=== PATIENT | female | born 1985 | race Caucasian/White ===

== ENCOUNTER 2020-05-16 13:27 | Day surgery (SDC) | payer BC, SELFPAY ==
[2020-05-16] VITALS (12 sets, daily range): BP systolic 107–120; BP diastolic 59–80; PULSE 87–103; RESP 16–20; TEMP 36.6–36.7; O2SAT 97–100; BMI 31.2
--- NOTE | 2020-05-16 14:17 | US_ITS ---
EXAMINATION: ULTRASOUND OBSTETRIC CLINICAL INFORMATION: Right lower quadrant pain. History of ectopic . COMPARISON: None TECHNIQUE: Transabdominal and transvaginal imaging of the pelvic viscera was performed utilizing grayscale and color Doppler technique FINDINGS: No intrauterine is identified. The endometrial canal is distended with heterogeneous cyst fluid/debris most compatible with blood clot. Left ovary not seen. Right ovary measures approximately 3.6 x 2.4 x 2.2 cm. There is a 3.5 x 2.8 x 2.6 cm ring-shaped structure inseparable from the right ovary concerning for an ectopic . There is a complicated fluid within the cul-de-sac, and right adnexa likely representing hemoperitoneum. Small fluid present within the Morison's pouch as well. US/US OB <= 14 weeks fetus IMPRESSION: No intrauterine is identified. Suspect right adnexal ectopic with hemoperitoneum. This critical result was discussed with Cristina Rodriguez M.D. at 4:10 PM on 05/16/2020 and it was ascertained that the content and urgency of the report was understood at the time of direct communication.
--- NOTE | 2020-05-16 14:17 | US_ITS ---
EXAMINATION: ULTRASOUND OBSTETRIC CLINICAL INFORMATION: Right lower quadrant pain. History of ectopic . COMPARISON: None TECHNIQUE: Transabdominal and transvaginal imaging of the pelvic viscera was performed utilizing grayscale and color Doppler technique FINDINGS: No intrauterine is identified. The endometrial canal is distended with heterogeneous cyst fluid/debris most compatible with blood clot. Left ovary not seen. Right ovary measures approximately 3.6 x 2.4 x 2.2 cm. There is a 3.5 x 2.8 x 2.6 cm ring-shaped structure inseparable from the right ovary concerning for an ectopic . There is a complicated fluid within the cul-de-sac, and right adnexa likely representing hemoperitoneum. Small fluid present within the Morison's pouch as well. US/US OB transvaginal IMPRESSION: No intrauterine is identified. Suspect right adnexal ectopic with hemoperitoneum. This critical result was discussed with Cristina Rodriguez M.D. at 4:10 PM on 05/16/2020 and it was ascertained that the content and urgency of the report was understood at the time of direct communication.
--- NOTE | 2020-05-16 14:29 | ED_ITS ---
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 She reports the pain is 10/10 when it occurs and doubles her over in pain. It started Sunday after she walked her dog, lasted a few hours and then went away. It recurred [place] the [place]. She started having minor spotting last night along with the pain. She states the bleeding is now resolved but the pain persists. No vaginal discharge. No N/V, No passing of clots or tissue. MD elicited complaint: abdominal pain Onset (ago): day(s) (3) Pain Consistency: intermittent Location: RLQ and pelvis Severity: severe Quality: cramping and sharp Radiation: back and other (right buttock) Exacerbating factors: movement Relieving factors: nothing Associated symptoms: denies other symptoms Related Data Patient : Yes Allergies Allergy/AdvReac Type Severity Reaction Status Date / Time Unable to Assess Allergy Verified 05/16/20 14:17 Review of Systems Review of Systems Constitutional: No Fever, No Chills ENT/Mouth: No sore throat, No Rhinorrhea, No Swallowing Difficulty Eyes: No Eye Pain, No Swelling, No Redness Cardiovascular: No Chest Pain, No SOB, No Orthopnea, No Edema Respiratory: No Cough, No Sputum, No Wheezing, No dyspnea Gastrointestinal: No Nausea, No Vomiting, No Diarrhea, No abdominal Pain, No Hematochezia, No Melena Genitourinary: No Dysuria, No Urinary Frequency, No Hematuria, + vaginal bleeding Musculoskeletal: No joint pain, No Myalgias Skin: No Skin Lesions, No rash Neuro: No Weakness, No Numbness, No Dizziness, No Headache Psych: No Anxiety/Panic, No Depression Heme/Lymph: No Bruising, No Lymphadenopathy Endocrine: No Polyuria, No Polydipsia Physical Exam Vital Signs: Vital Signs: Last Vital Signs Temp 98.0 F 05/16/20 16:03 Pulse 96 05/16/20 16:03 Resp 18 05/16/20 16:03 BP 118/65 05/16/20 16:03 Pulse Ox 100 05/16/20 16:03 Body Mass Index 31.2 Appearance: Alert. Oriented X3. No acute distress. Eyes: Pupils equal, round and reactive to light. ENT: Pharynx normal. Neck: Normal inspection. Neck supple. CVS: Normal heart rate and rhythm. Pulses normal. Respiratory: No respiratory distress. Breath sounds normal. Abdomen: Soft and nontender. +BS x4 Skin: Skin warm and dry. Normal skin color. Normal skin turgor. No rashes. Extremities: No lower extremity edema. Neuro: Oriented X 3. No motor deficit. No sensory deficit. Course Course Course Narrative: 35 y/o who is 6w6d presenting with intermittent severe right lower pelvic pain for the last 3 days. Hx ectopic and multiple miscarriages in the past. Pain is mild now and abd exam with mild diffuse lower tenderness. Need to r/o ectopic with STAT U/S. Type and screen and HCT quant ordered. Reevaluation(s) Reevaluation #1: Pelvic U/S showed: No intrauterine is identified.Suspect right adnexal ectopic with hemoperitoneum. 2nd IV line placed and Dr. Nolan contacted immediately. Planning for emergent OR -patient is hemodynamically stable, rapid COVID sent. H/H 03/27. Nursing bakery supervisor contacted to inform OR team of emergent case. Results were discussed with the patient and her at the bedside. All questions were answered. MDM - Abdominal Pain Lab Data Result diagrams: 05/16/20 14:42 05/16/20 14:42 Labs: Lab Results 05/16/20 05/16/20 05/16/20 Range/Units 14:42 14:42 14:42 WBC 10.3 (4.8-10.8) X10*3/uL RBC 3.48 L (4.20-5.50) X10*6/uL Hgb 10.5 L (12.0-16.0) g/dl Hct 31.6 L (37-47) % MCV 90.8 (80-98) fL MCH 30.2 (27.0-33.0) pg MCHC 33.2 (31.0-35.0) g/dl RDW 12.8 (11.0-16.0) % Plt Count 231 (160-400) X10*3/uL MPV 11.2 (9.4-12.3) fL Immature Gran % (Auto) 0.5 H (0.0-0.4) % Neut % (Auto) 85.2 H (45-73) % Lymph % (Auto) 9.3 L (20-40) % [place] % (Auto) 4.3 (2-11) % Eos % (Auto) 0.3 (0-4) % Baso % (Auto) 0.4 (0-2) % Lymph # (Auto) 1.0 L (1.2-4.9) X10*3/uL [place] # (Auto) 0.4 (0.1-1.2) X10*3/uL Eos # (Auto) 0.0 (0.0-0.4) X10*3/uL Baso # (Auto) 0.0 (0.0-0.2) X10*3/uL Abs Immat Gran (auto) 0.05 H (0.00-0.03) X10*3/uL Absolute Neuts (auto) 8.8 H (2.0-8.3) X10*3/uL Absolute Nucleated RBC 0.000 (0.0-0.012) X10*3/uL Nucleated RBC % (auto) 0.0 (0.0-0.2) /100WBC Sodium 139 (135-145) mmol/L Potassium 3.8 (3.3-5.1) mmol/l Chloride 103 (96-108) mmol/L Carbon Dioxide 26 (22-29) mmol/L Anion Gap 14 (12-20) BUN 10 (9-16) mg/dL Creatinine 0.71 (0.5-1.4) mg/dL Estim Creat Clear Calc 96.4 Estimated GFR > 60 Random Glucose 97 (60-115) mg/dL Calcium 9.1 (8.4-10.2) mg/dL Magnesium 2.1 (1.6-2.6) mg/dL Total Bilirubin 0.4 (0.0-1.0) mg/dL Direct Bilirubin 0.2 (0.0-0.5) mg/dL AST 17 (5-31) U/L ALT 22 (0-31) U/L Alkaline Phosphatase 60 (39-117) U/L Total Protein 7.3 (6.5-8.0) g/dL Albumin 4.5 (3.5-5.0) g/dL Beta HCG, Quant 7463 mIU/mL Urine Color Urine Appearance Urine pH (5.0-8.0) Ur Specific [place] (1.005-1.025) Urine Protein (NEG-TRACE) MG/DL Urine Glucose (UA) (NEG) MG/DL Urine Ketones (NEG) MG/DL Urine Blood (NEG) Urine Nitrite (NEG) Ur Leukocyte Esterase (NEG) Urine RBC (0) /HPF Urine WBC (0-4) /HPF Ur Squamous Epith Cells /LPF Urine Bacteria /LPF Urine Mucus /LPF Blood Type Antibody Screen 05/16/20 05/16/20 Range/Units 14:42 14:45 WBC (4.8-10.8) X10*3/uL RBC (4.20-5.50) X10*6/uL Hgb (12.0-16.0) g/dl Hct (37-47) % MCV (80-98) fL MCH (27.0-33.0) pg MCHC (31.0-35.0) g/dl RDW (11.0-16.0) % Plt Count (160-400) X10*3/uL MPV (9.4-12.3) fL Immature Gran % (Auto) (0.0-0.4) % Neut % (Auto) (45-73) % Lymph % (Auto) (20-40) % [place] % (Auto) (2-11) % Eos % (Auto) (0-4) % Baso % (Auto) (0-2) % Lymph # (Auto) (1.2-4.9) X10*3/uL [place] # (Auto) (0.1-1.2) X10*3/uL Eos # (Auto) (0.0-0.4) X10*3/uL Baso # (Auto) (0.0-0.2) X10*3/uL Abs Immat Gran (auto) (0.00-0.03) X10*3/uL Absolute Neuts (auto) (2.0-8.3) X10*3/uL Absolute Nucleated RBC (0.0-0.012) X10*3/uL Nucleated RBC % (auto) (0.0-0.2) /100WBC Sodium (135-145) mmol/L Potassium (3.3-5.1) mmol/l Chloride (96-108) mmol/L Carbon Dioxide (22-29) mmol/L Anion Gap (12-20) BUN (9-16) mg/dL Creatinine (0.5-1.4) mg/dL Estim Creat Clear Calc Estimated GFR Random Glucose (60-115) mg/dL Calcium (8.4-10.2) mg/dL Magnesium (1.6-2.6) mg/dL Total Bilirubin (0.0-1.0) mg/dL Direct Bilirubin (0.0-0.5) mg/dL AST (5-31) U/L ALT (0-31) U/L Alkaline Phosphatase (39-117) U/L Total Protein (6.5-8.0) g/dL Albumin (3.5-5.0) g/dL Beta HCG, Quant mIU/mL Urine Color YELLOW Urine Appearance HAZY Urine pH 7.5 (5.0-8.0) Ur Specific [place] 1.020 (1.005-1.025) Urine Protein TRACE (NEG-TRACE) MG/DL Urine Glucose (UA) NEG (NEG) MG/DL Urine Ketones 5 (NEG) MG/DL Urine Blood 2+ H (NEG) Urine Nitrite NEG (NEG) Ur Leukocyte Esterase NEG (NEG) Urine RBC 1-4 (0) /HPF Urine WBC 0 (0-4) /HPF Ur Squamous Epith Cells 2+ /LPF Urine Bacteria 1+ /LPF Urine Mucus 1+ /LPF Blood Type O Positive Antibody Screen NEGATIVE Discharge Plan Discharge Clinical Impression: Ectopic Qualifiers: Location of ectopic : tubal Intrauterine status: without intrauterine Laterality: right Qualified Code(s): O00.101 - Right tubal without intrauterine Patient Disposition: Admitted As Inpatient [facility] Past Medical History Attestation statement: The following information was validated with the patient. Medical History Ectopic Miscarriage Social History Social History Alcohol intake: never Smoking Status: Never smoker Use of substances other than those prescribed or required for medical reasons: No Advance Directives: No Advance Directives Information Provided: Yes
[2020-05-16] MEDS: 0.9 % Sodium Chloride 1,000 ML 999 ML IVCONT (14:44)
[2020-05-16 15:01] LABS: Basophils Percent Auto 0.4 % (0-2); Eosinophils Percent Auto 0.3 % (0-4); Hematocrit 31.6 % (37-47); Hemoglobin 10.5 g/dl (12.0-16.0); Imm Gran Abs Auto 0.05 X10*3/uL (0.00-0.03); Imm Gran Pct Auto 0.5 % (0.0-0.4); Lymphocytes Percent Auto 9.3 % (20-40); Mean Corpuscular HGB Conc 33.2 g/dl (31.0-35.0); Mean Corpuscular Hemoglobin 30.2 pg (27.0-33.0); Mean Corpuscular Volume 90.8 fL (80-98); Mean Platelet Volume 11.2 fL (9.4-12.3); Monocytes Absolute Auto 0.4 X10*3/uL (0.1-1.2); Monocytes Percent Auto 4.3 % (2-11); Neutrophils Absolute Auto 8.8 X10*3/uL (2.0-8.3); Neutrophils Percent Auto 85.2 % (45-73); Platelet Count 231 X10*3/uL (160-400); Red Blood Count 3.48 X10*6/uL (4.20-5.50); Red Cell Distribution Width 12.8 % (11.0-16.0); White Blood Count 10.3 X10*3/uL (4.8-10.8)
[2020-05-16 15:02] LABS: Glucose Urine UA NEG (NEG); Leukocyte Esterase Urine NEG (NEG); MANUAL DIFF FLAG NO; Nitrite Urine NEG (NEG); PH 7.5 (5.0-8.0); Urine Blood 2+ (NEG); Urine Ketones 5 MG/DL (NEG); Urine Protein TRACE MG/DL (NEG-TRACE)
[2020-05-16 15:10] LABS: Appearance Urine HAZY; Color Urine YELLOW
[2020-05-16 15:16] LABS: Bacteria Urine 1+ /LPF; Mucus Urine 1+ /LPF; Squamous Epithelial Cell Urine 2+ /LPF; WBC Urine 0 /HPF (0-4)
[2020-05-16 15:24] LABS: Alanine Aminotransferase 22 U/L (0-31); Albumin Level 4.5 g/dL (3.5-5.0); Alkaline Phosphatase 60 U/L (39-117); Anion Gap 14 (12-20); Aspartate Amino Transferase 17 U/L (5-31); Bilirubin Direct 0.2 mg/dL (0.0-0.5); Bilirubin Total 0.4 mg/dL (0.0-1.0); Blood Urea Nitrogen 10 mg/dL (9-16); Calcium 9.1 mg/dL (8.4-10.2); Carbon Dioxide 26 mmol/L (22-29); Chloride 103 mmol/L (96-108); Creatinine Clr Calc Pharmacy 96.4; Estimated Glomerular Filt Rate > 60; Glucose Random 97 mg/dL (60-115); Magnesium 2.1 mg/dL (1.6-2.6); Potassium 3.8 mmol/l (3.3-5.1); Sodium 139 mmol/L (135-145); Total Protein 7.3 g/dL (6.5-8.0)
[2020-05-16 15:31] LABS: HCG Quantitative 7463 mIU/mL
--- NOTE | 2020-05-16 16:34 | PC.NURSE ---
PA at bedside to explain US results. Second IV placed. allowed to come back to see her. OB on his way to see patient and bring her to OR. Pt aware of the plan. VSS at this time.
[2020-05-16 16:56] LABS: COVID-19 Test Negative (Negative); IDNOW Serial# 9DD0AD1C
--- NOTE | 2020-05-16 17:20 | P.HPOB_ITS ---
ACCOUNT MANAGER SALES REPRESENTATIVE - H&P: HPI History of Present Illness Narrative: Leigh Ann Millan is a 35 year old female presented emergency room 6 and half weeks complaining of worsening pelvic pain. The patient's LMP was 6 and half weeks ago started having pelvic pain more on the right a week ago which got worse every day till today when it became not tolerated so the patient came into the emergency room . No other associated symptoms, the patient has history of ectopic status post left salpingectomy accordin g to the patient 10 years ago followed by a miscarriage and 2 vaginal deliveries normal gestations with no complications followed by for SABs [facility] - Review of Systems Review of Systems ROS Unobtainable: All systems reviewed & are unremarkable except as noted in HPI and below OB PMFSH Past Medical History Medical History (Updated 05/16/20 @ 17:31 by Jarad Nolan MD) Miscarriage Date of last menstrual period: 03/25/20 Patient : No Surgical History Surgical History (Updated 05/16/20 @ 17:31 by Jarad Nolan MD) S/P laparoscopic procedure Social History Social History Alcohol intake: never Smoking Status: Never smoker Use of substances other than those prescribed or required for medical reasons: No Advance Directives: No Advance Directives Information Provided: Yes Meds Allergies Allergy/AdvReac Type Severity Reaction Status Date / Time No Known Allergies Allergy Verified 05/16/20 17:22 ACCOUNT MANAGER SALES REPRESENTATIVE Physical Exam Vitals Vital signs: Temp Pulse Resp BP Pulse Ox 98.0 F 98 20 115/74 100 05/16/20 16:03 05/16/20 16:40 05/16/20 16:40 05/16/20 16:40 05/16/20 16:40 Body Mass Index 31.2 Lungs Auscultation: Clear to auscultation Cardiovascular Auscultation: RRR Abdomen Auscultation/Inspection/Palpation: Distended, Tenderness and Guarding Female Genitalia (Pelvic) Exam: Deferred ACCOUNT MANAGER SALES REPRESENTATIVE - Results Labs CBC & Chem 7: 05/16/20 14:42 05/16/20 14:42 Labs: Short CBC 05/16/20 Range/Units 14:42 WBC 10.3 (4.8-10.8) X10*3/uL Hgb 10.5 L (12.0-16.0) g/dl Hct 31.6 L (37-47) % Plt Count 231 (160-400) X10*3/uL BMP 05/16/20 14:42 Sodium 139 Potassium 3.8 Chloride 103 Carbon Dioxide 26 BUN 10 Creatinine 0.71 Calcium 9.1 Liver Function 05/16/20 Range/Units 14:42 Total Bilirubin 0.4 (0.0-1.0) mg/dL Direct Bilirubin 0.2 (0.0-0.5) mg/dL AST 17 (5-31) U/L ALT 22 (0-31) U/L Alkaline Phosphatase 60 (39-117) U/L Albumin 4.5 (3.5-5.0) g/dL Urine 05/16/20 Range/Units 14:42 Urine Color YELLOW Urine Appearance HAZY Urine pH 7.5 (5.0-8.0) Ur Specific [place] 1.020 (1.005-1.025) Urine Protein TRACE (NEG-TRACE) MG/DL Urine Glucose (UA) NEG (NEG) MG/DL Antibody Screen Antibody Screen NEGATIVE 05/16/20 14:45 Assessment and Plan (1) Ectopic : Qualifiers: Intrauterine status: without intrauterine Laterality: right Location of ectopic : tubal Qualified Code(s): O00.101 - Right tubal without intrauterine Status: Acute Discussed with the patient the finding on her workup including the following an HCG 7400, ultrasound showing no intrauterine and a right complex mass in showed in the pelvis consistent with ruptured ectopic and hemoperitoneum. Recommended laparoscopic right salpingostomy possible right salpingectomy and evacuation of hemoperitoneum possible laparotomy discussed with the patient the procedure possible risks including but not limited to bleeding, infection, possible injury to bladder, blood bowel, ureter, blood vessels, possible need for blood transfusion was all its risks, possible laparotomy, possible hysterectomy. Also discussed the patient if the right tube looked ruptured or damaged and the tube looks like cannot be salvaged will proceed with right salpingectomy, discussed the patient the implication of a right salpingectomy given her history of left salpingectomy, specifically inability to conceive spontaneously in the future and the need for in vitro fertilization. The patient verbalized understanding and agreed with the plan and expressed interest in right salpingectomy and is not interested in future fe rtility and does not want increase the risk for future recurrent ectopic per patient. All questions answered patient verbalized understanding and signed the consent.
--- NOTE | 2020-05-16 17:27 | P.CONAN_ITS ---
[facility] Past Medical History Medical History Ectopic Miscarriage Surgical History Surgical History (Updated 05/16/20 @ 17:31 by Jarad Nolan MD) S/P laparoscopic procedure Social History Social History Alcohol intake: never Smoking Status: Never smoker Use of substances other than those prescribed or required for medical reasons: No Advance Directives: No Advance Directives Information Provided: Yes Meds Allergies Allergy/AdvReac Type Severity Reaction Status Date / Time No Known Allergies Allergy Verified 05/16/20 17:22 Exam Exam Date and Time: May 16, 2020 1727 Height,Weight and Vital Signs: Height 5 ft Weight 72.575 kg Last Vital Signs Temp 98.0 F 05/16/20 16:03 Pulse 98 05/16/20 16:40 Resp 20 05/16/20 16:40 BP 115/74 05/16/20 16:40 Pulse Ox 100 05/16/20 16:40 Pertinent Lab Results Pertinent Lab Results: Laboratory Tests 05/16/20 05/16/20 05/16/20 14:42 14:42 14:42 WBC 10.3 RBC 3.48 L Hgb 10.5 L Hct 31.6 L MCV 90.8 MCH 30.2 MCHC 33.2 RDW 12.8 Plt Count 231 MPV 11.2 Immature Gran % (Auto) 0.5 H Neut % (Auto) 85.2 H Lymph % (Auto) 9.3 L [place] % (Auto) 4.3 Eos % (Auto) 0.3 Baso % (Auto) 0.4 Lymph # (Auto) 1.0 L [place] # (Auto) 0.4 Eos # (Auto) 0.0 Baso # (Auto) 0.0 Abs Immat Gran (auto) 0.05 H Absolute Neuts (auto) 8.8 H Absolute Nucleated RBC 0.000 Nucleated RBC % (auto) 0.0 Sodium 139 Potassium 3.8 Chloride 103 Carbon Dioxide 26 Anion Gap 14 BUN 10 Creatinine 0.71 Estim Creat Clear Calc 96.4 Estimated GFR > 60 Random Glucose 97 Calcium 9.1 Magnesium 2.1 Total Bilirubin 0.4 Direct Bilirubin 0.2 AST 17 ALT 22 Alkaline Phosphatase 60 Total Protein 7.3 Albumin 4.5 Beta HCG, Quant 7463 Urine Color Urine Appearance Urine pH Ur Specific [place] Urine Protein Urine Glucose (UA) Urine Ketones Urine Blood Urine Nitrite Ur Leukocyte Esterase Urine RBC Urine WBC Ur Squamous Epith Cells Urine Bacteria Urine Mucus COVID-19 (TONY) COVID-19 Clin Com Blood Type Antibody Screen 05/16/20 05/16/20 05/16/20 14:42 14:45 16:12 WBC RBC Hgb Hct MCV MCH MCHC RDW Plt Count MPV Immature Gran % (Auto) Neut % (Auto) Lymph % (Auto) [place] % (Auto) Eos % (Auto) Baso % (Auto) Lymph # (Auto) [place] # (Auto) Eos # (Auto) Baso # (Auto) Abs Immat Gran (auto) Absolute Neuts (auto) Absolute Nucleated RBC Nucleated RBC % (auto) Sodium Potassium Chloride Carbon Dioxide Anion Gap BUN Creatinine Estim Creat Clear Calc Estimated GFR Random Glucose Calcium Magnesium Total Bilirubin Direct Bilirubin AST ALT Alkaline Phosphatase Total Protein Albumin Beta HCG, Quant Urine Color YELLOW Urine Appearance HAZY Urine pH 7.5 Ur Specific [place] 1.020 Urine Protein TRACE Urine Glucose (UA) NEG Urine Ketones 5 Urine Blood 2+ H Urine Nitrite NEG Ur Leukocyte Esterase NEG Urine RBC 1-4 Urine WBC 0 Ur Squamous Epith Cells 2+ Urine Bacteria 1+ Urine Mucus 1+ COVID-19 (TONY) Negative COVID-19 Clin Com See Note Blood Type O Positive Antibody Screen NEGATIVE Assessment and Plan Assessment Anesthesia Assessment: Anesthesia Plan Discussed Final Anesthetic Review NPO: Yes ASA Class: I Final Preanesthetic Review: No Changes in Pt Med Stat, Meds/Allgs Chart Reviewed, Consent Obtained/Reviewed and Anes Risks/Benef Reviewed Patient Risk: Intermediate Procedure Risk: Low Anesthetic Plan Anesthetic Plan: GA Disposition: Standard PACU
--- NOTE | 2020-05-16 17:42 | P.CONAN_ITS ---
[facility] Past Medical History Medical History (Updated 05/16/20 @ 17:31 by Jarad Nolan MD) Miscarriage Surgical History Surgical History (Updated 05/16/20 @ 17:31 by Jarad Nolan MD) S/P laparoscopic procedure Social History Social History Alcohol intake: never Smoking Status: Never smoker Use of substances other than those prescribed or required for medical reasons: No Advance Directives: No Advance Directives Information Provided: Yes Meds Allergies Allergy/AdvReac Type Severity Reaction Status Date / Time No Known Allergies Allergy Verified 05/16/20 17:22 Exam Exam Date and Time: May 16, 2020 174 Height,Weight and Vital Signs: Height 5 ft Weight 72.575 kg Last Vital Signs Temp 98.0 F 05/16/20 16:03 Pulse 98 05/16/20 16:40 Resp 20 05/16/20 16:40 BP 115/74 05/16/20 16:40 Pulse Ox 100 05/16/20 16:40 Pertinent Lab Results Pertinent Lab Results: Laboratory Tests 05/16/20 05/16/20 05/16/20 14:42 14:42 14:42 WBC 10.3 RBC 3.48 L Hgb 10.5 L Hct 31.6 L MCV 90.8 MCH 30.2 MCHC 33.2 RDW 12.8 Plt Count 231 MPV 11.2 Immature Gran % (Auto) 0.5 H Neut % (Auto) 85.2 H Lymph % (Auto) 9.3 L [place] % (Auto) 4.3 Eos % (Auto) 0.3 Baso % (Auto) 0.4 Lymph # (Auto) 1.0 L [place] # (Auto) 0.4 Eos # (Auto) 0.0 Baso # (Auto) 0.0 Abs Immat Gran (auto) 0.05 H Absolute Neuts (auto) 8.8 H Absolute Nucleated RBC 0.000 Nucleated RBC % (auto) 0.0 Sodium 139 Potassium 3.8 Chloride 103 Carbon Dioxide 26 Anion Gap 14 BUN 10 Creatinine 0.71 Estim Creat Clear Calc 96.4 Estimated GFR > 60 Random Glucose 97 Calcium 9.1 Magnesium 2.1 Total Bilirubin 0.4 Direct Bilirubin 0.2 AST 17 ALT 22 Alkaline Phosphatase 60 Total Protein 7.3 Albumin 4.5 Beta HCG, Quant 7463 Urine Color Urine Appearance Urine pH Ur Specific [place] Urine Protein Urine Glucose (UA) Urine Ketones Urine Blood Urine Nitrite Ur Leukocyte Esterase Urine RBC Urine WBC Ur Squamous Epith Cells Urine Bacteria Urine Mucus COVID-19 (TONY) COVID-19 Clin Com Blood Type Antibody Screen 05/16/20 05/16/20 05/16/20 14:42 14:45 16:12 WBC RBC Hgb Hct MCV MCH MCHC RDW Plt Count MPV Immature Gran % (Auto) Neut % (Auto) Lymph % (Auto) [place] % (Auto) Eos % (Auto) Baso % (Auto) Lymph # (Auto) [place] # (Auto) Eos # (Auto) Baso # (Auto) Abs Immat Gran (auto) Absolute Neuts (auto) Absolute Nucleated RBC Nucleated RBC % (auto) Sodium Potassium Chloride Carbon Dioxide Anion Gap BUN Creatinine Estim Creat Clear Calc Estimated GFR Random Glucose Calcium Magnesium Total Bilirubin Direct Bilirubin AST ALT Alkaline Phosphatase Total Protein Albumin Beta HCG, Quant Urine Color YELLOW Urine Appearance HAZY Urine pH 7.5 Ur Specific [place] 1.020 Urine Protein TRACE Urine Glucose (UA) NEG Urine Ketones 5 Urine Blood 2+ H Urine Nitrite NEG Ur Leukocyte Esterase NEG Urine RBC 1-4 Urine WBC 0 Ur Squamous Epith Cells 2+ Urine Bacteria 1+ Urine Mucus 1+ COVID-19 (TONY) Negative COVID-19 Clin Com See Note Blood Type O Positive Antibody Screen NEGATIVE Airway Mallampati Class: I TM Dist: >3cm Neck ROM: Full Heart: RRR Lungs: CTA
--- NOTE | 2020-05-16 17:47 | MHC.SHP ---
Pre-Procedural Eval Section A The patient is an INPATIENT: No Changes since office visit: No Cold of Flu in the past 2 weeks, No New Medical Problems, No Changes in Medication and No Patient answered all questions The History & Physical has been completed within 30 days and I have reviewed it.: Yes Section B Chief Complaint: abd pain Allergies: Allergies Allergy/AdvReac Type Severity Reaction Status Date / Time No Known Allergies Allergy Verified 05/16/20 17:22 Plan Diagnosis/Plan: Unchanged I have reviewed the history and physical and performed a pertinent physical examination on my patient. No changes have occurred unless specified.
--- NOTE | 2020-05-16 19:32 | W.PM.OPN ---
Operative Note Operative Note Date of Service: 05/16/20 Narrative: PREOPERATIVE DIAGNOSIS:?R tubal ectopic POSTOPERATIVE DIAGNOSIS:?3-4 cm right ecotpic filling up most of the tubal length with bluish discoloration, 50 cc of hemoperitoneum Procedure: Right partial salpingectomy QBL: Minimal Anesthesia: GETA SURGEON:? Jarad Nolan MD?? Case Management Specialist:None Complications: None Pathology: Right partial Fallopian tubes? DESCRIPTION OF PROCEDURE:?The patient was taken to the OR where general anesthesia was easily obtained. The patient was then prepped and draped in a sterile fashion and placed in dorsal lithotomy position. A speculum was introduced into the patient?s vagina for cervical visualization. a was introduced into the patient?s cervix. The single tooth tenaculum was then removed and hemostasis was assured?using pressure. a Cole catheter?was inserted and clear urine started draining. Gloves were changed to clean ones. Attention was then drawn to the abdomen where a 10 mm longitudinal incision was done intra umbilical and carried down all the way to the fascia, which was tented?up using 2 Rasheeda clamps and was nicked in the midline and then extended on both end of the incision?, them using 2 pick?ups the peritoneum?was entered with Metzenbaum scissors and under direct visualization, a 10 mm Fernandes trocar was introduced into the patient?s abdomen. Once intraperitoneal placement was confirmed with direct visualization, pneumoperitoneum was started & was easily obtained.Then, two fingerbreadths above the pubic symphysis and towards the?right lower quadrant, under direct visualization, a 5 mm trocar was then introduced into the patient?s abdomen. and a 3rd 10 mm trochar on the left?lower quadrant was placed?in a similar manner. The patient was placed in Trendelenburg position, Inspection revealed right tubal filling up most of the right tube was bluish discoloration and 50 cc of hemoperitoneum, normal bilateral ovaries. Attention was then drawn to the Right fallopian tube. Since most of the right tube was filled up with the ectopic with bluish discoloration decision was made to proceed with partial salpingectomy instead of salpingostomy The IP ligament was identified and fallopian tube was then grasped by the fimbria and incised from the mesosalpinx using ligasure device, using cautery for hemostasis and cutting afterwards a bite at a time all the way to the area medial to the edge of the ectopic of the right fallopian tube. Good hemostasis was noted from the right fallopian tube sites and the operative site. Specimen were then removed from the patient?s abdomen using endoloop from the 10 mm trocar through the umbilicus. Copious irrigation was done. Once good hemostasis was noted from the patient?s abdomen, pneumoperitoneum was deflated and all trocars were removed. Infraumbilical fascia was closed with 0 Vicryl and interrupted suture. The skin was closed with 4-0 Vicryl. The Right and left?lower quadrant ports were closed with 0 Vicryl. Bupivicaine 0.25 10 cc were injected subcuticularly in the 3 incisions. Then speculum was put back in the vagina inspection revealed?hemostasis at the site of the tenaculum, the?sponge stick was removed?from the patient's vagina and Cole was draining clear urine was taken out too. Sponge, lap and needle counts were correct x2. The patient was taken to the recovery room in stable condition.
--- NOTE | 2020-05-16 19:34 | PM.OP ---
Brief Operative Note Date of Service: 05/16/20 Pre-op diagnosis: R tubal prgnancy with hemoperitoneum Post-op diagnosis: other (R tubal filling up 3-4 cm of the fallopian tube, with bluish discoloration, 50 cc of hemoperitoneum) Procedure: Laparoscopic Right partial salpingectomy Surgeon: Jarad Nolan MD Anesthesia: GETA Estimated blood loss (mL): 0 Pathology: other (Right & left fallopian tubes) Condition: stable Disposition: PACU
[2020-05-16] MEDS: oxyCODONE HCl Immed Release 5 MG TABLET PO (20:04)
[2020-05-16] MEDS: Acetaminophen 325 MG TABLET 650 MG PO (20:04)
[2020-05-16] MEDS: fentaNYL citrate/PF 100 MCG/2 ML VIAL 25 MCG IVPUSH ×2 (20:07→20:14)
--- NOTE | 2020-05-17 09:41 | HO.POSTANES ---
Post Anesthesia Evaluation Post Anesthesia Evaluation Vital Signs: VSS Anesthesia: General Endotracheal-GETA Mental Status: Awake Pain Control: Satisfactory Nausea/Vomiting: None Hydration: Adequate Anesthesia-Related Issues: No Anes. Related Issues
== END 2020-05-16 21:05 | disposition home or self-care (01) ==
LOC: HO.ED 16:27 → HO.SSS 17:47
PROVIDERS: Physician Assistant; Emergency Provider Emergency Medicine; Visit Provider Obstetrics & Gynecology
PROC: 10T24ZZ Resection of Products of Conception, Ectopic, Percutaneous Endoscopic Approach (ICD-10-PCS; CPT 59150; principal; 2020-05-16 17:09)
DX: O00.101 Right tubal pregnancy without intrauterine pregnancy (principal); O26.891 Other specified pregnancy related conditions, first trimester; O09.11 Supervision of pregnancy with history of ectopic pregnancy, first trimester; Z3A.14 14 weeks gestation of pregnancy
CPT/HCPCS: 58661; 36415; 76801; 76817; 80048; 80076; 81001; 81003; 83735; 84702; 85025; 86850; 86900; 86901; 87635; 88305; 96361; 96374; 99285; J0330; J1100; J1885; J2250; J3010

== ENCOUNTER 2020-05-19 14:23 | Outpatient (REF) | payer BC, SELFPAY ==
[2020-05-19 15:51] LABS: HCG Quantitative 969 mIU/mL
== END 2020-05-19 14:24 | disposition home or self-care (01) ==
LOC: HO.LAB 14:23
PROVIDERS: Visit Provider Obstetrics & Gynecology
DX: O00.101 Right tubal pregnancy without intrauterine pregnancy (principal)
CPT/HCPCS: 84702

== ENCOUNTER 2020-06-03 10:49 | Outpatient (REF) | payer BC, SELFPAY ==
[2020-06-03 13:37] LABS: HCG Quantitative 10 mIU/mL
== END 2020-06-03 10:50 | disposition home or self-care (01) ==
LOC: HO.LAB 10:49
PROVIDERS: Visit Provider Obstetrics & Gynecology
DX: O00.101 Right tubal pregnancy without intrauterine pregnancy (principal); O26.899 Other specified pregnancy related conditions, unspecified trimester; R31.0 Gross hematuria
CPT/HCPCS: 36415; 81002; 84702; 87086

== ENCOUNTER 2020-06-17 14:06 | Outpatient (REF) | payer BC, SELFPAY | END 2020-06-17 14:07 | disposition home or self-care (01) | LOC: HO.LAB 14:06 | PROVIDERS: Visit Provider Obstetrics & Gynecology | DX: O00.90 Unspecified ectopic pregnancy without intrauterine pregnancy (principal); O08.89 Other complications following an ectopic and molar pregnancy; R31.29 Other microscopic hematuria | CPT/HCPCS: 81003; 87086 ==

== ENCOUNTER 2020-07-02 08:08 | Outpatient (REF) | payer BC, SELFPAY ==
[2020-07-02 09:05] LABS: HCG Quantitative < 2 mIU/mL
== END 2020-07-02 08:09 | disposition home or self-care (01) ==
LOC: HO.LAB 08:08
PROVIDERS: Visit Provider Obstetrics & Gynecology
DX: O00.101 Right tubal pregnancy without intrauterine pregnancy (principal); O09.529 Supervision of elderly multigravida, unspecified trimester; O26.899 Other specified pregnancy related conditions, unspecified trimester; R31.29 Other microscopic hematuria
CPT/HCPCS: 36415; 84702

== ENCOUNTER 2020-07-05 08:30 | Outpatient (REF) | payer BC, SELFPAY ==
--- NOTE | ~2020-07-05 | CT_ITS ---
EXAMINATION: CT ABDOMEN AND PELVIS WITHOUT AND WITH CONTRAST CLINICAL INFORMATION: Microscopic hematuria. COMPARISON: None TECHNIQUE: Multidetector volumetric imaging was performed of the abdomen and pelvis before and after the IV administration of 85 mL of Omnipaque 350 intravenous contrast. Sagittal and coronal reformatted images were obtained on the technologist's workstation. This CT examination was performed using dose optimization techniques as appropriate, variously including the following: *Automated exposure control *Adjustment of mA and/or kV according to patient size (this includes techniques or standardized protocols for targeted exams where dose is matched to indication/reason for exam; i.e. extremities or head) *Use of iterative reconstruction technique DLP: 977 mGy-cm FINDINGS: LUNG BASES: The visualized lung bases are unremarkable. LIVER, GALLBLADDER, AND BILIARY TREE: The liver is normal in size, shape, and attenuation. No focal hepatic lesion or biliary ductal dilatation is present. The gallbladder is unremarkable with no evidence of radiopaque gallstones, gallbladder wall thickening, or obvious pericholecystic inflammatory changes. PANCREAS: The pancreas is homogeneous in density and normal size. SPLEEN: Unremarkable. ADRENAL GLANDS: Unremarkable. KIDNEYS AND URETERS: Both kidneys are normal size, shape and position. No radiopaque renal calculi or hydronephrosis seen. There is a 1 cm nonenhancing cyst lower pole right kidney. There is good opacification of bilateral kidney pelvises and majority of right ureter and part of upper and mid and minimal distal left ureter but no intraluminal filling defect or narrowing. BLADDER: Unremarkable. GASTROINTESTINAL TRACT: There is scattered stool and gas seen throughout the colon without significant distention. The small bowel loops are normal caliber. The appendix is normal caliber. The stomach is nondistended. ABDOMINAL WALL: There is a small hiatal hernia with fat within. LYMPH NODES: Normal. VASCULAR: Unremarkable. PELVIC VISCERA: The uterus is retroverted. 1 cm nonenhancing hypodense lesion right ovary, likely simple cyst. There is no free fluid. OSSEOUS STRUCTURES: Unremarkable. CT/CT abdomen pelvis wo/w con IMPRESSION: No radiopaque urolith, hydroureteronephrosis or intraluminal pelvic or ureteral defect. Small cyst lower pole right kidney. The bladder is unremarkable. Mild constipation.
[2020-07-05] MEDS: iohexoL 350 MG/ML 100 ML INFUS..BTL IV (09:38)
== END 2020-07-05 08:31 | disposition home or self-care (01) ==
LOC: HO.CT 08:30
PROVIDERS: Visit Provider Obstetrics & Gynecology
DX: R31.29 Other microscopic hematuria (principal)
CPT/HCPCS: 74178; Q9967